=== PATIENT | female | born 1965 | race Caucasian/White ===

== ENCOUNTER → 2018-01-28 | Outpatient (CLI) | payer OTHER ==
[~2018-01-28] MED LIST: ADVIL LIQUI-GE200 MG PO; FLEXERIL PO; HYDROCODON-ACE1 EACH PO; IBUPROFEN 200200 M1 PO; MEDROL DOSPAK21 TA1 PO; RELAFEN750 MG PO
== END ==
LOC: ULTRA 11:19
DX: M79.661 Pain in right lower leg (principal); M79.662 Pain in left lower leg; M79.89 Other specified soft tissue disorders

== ENCOUNTER 2018-03-07 19:45 | Emergency (ER) | payer OTHER ==
[~2018-03-07] VITALS: Ht 180.3 cm; Wt 113.4 kg
--- NOTE | ~2018-03-07 | EKG ---
[address] [place] [address] ELECTROCARDIOGRAM REPORT Name: KHURRAMDIPESH V Room #: DEP [facility] [id number] Admission: 03/07/18 Attend Phys: Discharge: 03/07/18 Date of : 65 Report #: [id number] THIS REPORT FOR: //name// [facility] ED Test Date: 2018-03-07 Test Time: 19:52:23 Pat Name: DIPESH PAULSON Department: Room: Gender: F [employer] Head: MATTHEW : 1965 Requested By: Renu Lemus Order Number: [id number] MD: Andres Simpson Measurements Intervals Bascom Rate: 66 P: 65 MI: 195 QRS: 18 QRSD: 112 T: 46 QT: 418 QTc: 438 Interpretive Statements Sinus rhythm Right ventricular conduction delay Compared to ECG 10/23/2015 12:41:51 Poor R-wave progression no longer present Electronically Signed On 03-08-2018 8:14:01 CDT by Andres Simpson [email or web address] <ELECTRONICALLY SIGNED> By: Andres Simpson MD, [facility] 03/08/18813 51 51 Andres Simpson MD, FACC /EPI
[2018-03-07] MEDS ORDERED: MINIVELLE1 EAC1 (19:56)
[2018-03-07 20:11] LABS: ABSOLUTE NEUTROPHILS 6.8 thou/uL (1.4-8.2); BASOPHILS 0.2 % (0.0-2.0); EOSINOPHILS 1.1 % (0.0-3.0); HEMATOCRIT 43.9 % (37.0-47.0); LYMPHOCYTES 31.1 % (24.0-44.0); MCHC 34.1 g/dL (28.0-37.0); MONOCYTES 9.4 % (1.0-8.0); PLATELET COUNT 255 thou/uL (150-400); POLYS 58.2 % (36.0-66.0); RBC 5.17 mil/uL (4.20-5.00); RDW 13.7 % (10.5-14.5); WBC 11.6 thou/uL (4.0-11.0)
[2018-03-07 20:22] LABS: ANION GAP 10 mmol/L (7-16); BUN 13 mg/dL (7-18); CALCIUM 9.3 mg/dL (8.5-10.1); CHLORIDE 102 mmol/L (98-107); CO2 25 mmol/L (21-32); CREATININE 1.1 mg/dL (0.6-1.0); GLUCOSE 75 mg/dL (74-106); POTASSIUM 3.6 mmol/L (3.5-5.1); SODIUM 137 mmol/L (136-145)
[2018-03-07 20:30] LABS: ALBUMIN 4.1 g/dL (3.4-5.0); MAGNESIUM 2.1 mg/dL (1.8-2.4); SGOT 30 U/L (15-37); SGPT 62 U/L (30-65); TOTAL BILIRUBIN 0.8 mg/dL (<0.1-1.0); TOTAL PROTEIN 8.2 g/dL (6.4-8.2); TROPONIN-I <0.06 ng/mL (<0.06)
[2018-03-07 20:42] LABS: URINE BILIRUBIN NEGATIVE (Negative); URINE BLOOD 2+ (Negative); URINE CLARITY CLEAR; URINE COLOR YELLOW; URINE GLUCOSE-RANDOM* NEGATIVE (Negative); URINE KETONES NEGATIVE (Negative); URINE LEUKOCYTES NEGATIVE (Negative); URINE NITRITE NEGATIVE (Negative); URINE PROTEIN (DIPSTICK) NEGATIVE (Negative); URINE UROBILINOGEN 0.2 E.U./dl (0.2-1.0)
[2018-03-07 20:53] LABS: CASTS None Seen /LPF (None Seen); CRYSTALS None Seen /LPF (None Seen); SQUAMOUS 4-10 Moderate /LPF (0-3); URINE RBC 3-10 Few /HPF (0-2)
[2018-03-07 20:54] LABS: BACTERIA 1-9 Few /HPF (None Seen); URINE WBC None Seen /HPF (0-5)
[2018-03-07] MEDS ORDERED: PROTONIX 20 MG20 M1 PO (22:38)
[2018-03-07] MEDS ORDERED: CARAFATE 1 GM TA1 G1 PO (22:38)
[2018-03-07] MEDS ORDERED: ZOFRAN ODT4 MG PO (22:38)
== END 2018-03-07 23:01 | disposition home or self-care (01) ==
LOC: ER 19:45
PROVIDERS: Nurse Practitioner Family
DX: R07.89 Other chest pain (principal); R11.0 Nausea; R06.02 Shortness of breath; M79.89 Other specified soft tissue disorders; Z90.710 Acquired absence of both cervix and uterus